=== PATIENT | female | born 1985 | race Caucasian/White ===

== ENCOUNTER 2018-05-25 19:47 | Emergency (ER) | payer OTHER ==
[~2018-05-25] VITALS: Ht 157.5 cm; Wt 71.0 kg
[~2018-05-25 19:47] MED LIST: CELEXA40 MG PO; ENDOCET 5-3251 EACH PO; FERRONATE325 MG PO; IBUPROFEN800 MG PO; IRON325 M1 PO; LEVOTHYROXINE200 MC1 PO; PRENATAL TABLE1 EAC3 PO; SYNTHROID100 MCG PO; SYNTHROID75 MCG PO; ZOFRAN4 MG PO
[2018-05-25] MEDS ORDERED: PERCOCET 5/31 TABLET PO (22:20)
[2018-05-25] MEDS ORDERED: VALIUM5 MG PO (22:20)
[2018-05-25 22:30] VITALS: BP 118/80
== END 2018-05-25 22:37 | disposition home or self-care (01) ==
LOC: EME 19:47
DX: M54.2 Cervicalgia (principal); M62.838 Other muscle spasm; E03.9 Hypothyroidism, unspecified; J45.909 Unspecified asthma, uncomplicated; K90.0 Celiac disease; F41.9 Anxiety disorder, unspecified; F32.9 Major depressive disorder, single episode, unspecified; Z87.891 Personal history of nicotine dependence; Z88.2 Allergy status to sulfonamides; Z88.8 Allergy status to other drugs, medicaments and biological substances
CPT/HCPCS: 72040; 99281; 99284; J1885